=== PATIENT | female | born 1980 | race African-American/Black ===

== ENCOUNTER 2017-12-31 17:38 | Emergency (ER) | payer MEDICAID ==
[~2017-12-31] VITALS: Ht 167.6 cm; Wt 87.0 kg
[2017-12-31 17:43] VITALS: BP 119/76
== END 2017-12-31 20:46 | disposition left against medical advice (07) ==
LOC: ER 19:05
DX: R06.02 Shortness of breath (principal); R14.0 Abdominal distension (gaseous); R18.8 Other ascites; F12.10 Cannabis abuse, uncomplicated; F17.200 Nicotine dependence, unspecified, uncomplicated
CPT/HCPCS: 99281

== ENCOUNTER 2018-01-01 11:54 | Emergency (ER) | payer MEDICAID ==
[~2018-01-01] VITALS: Ht 167.6 cm; Wt 81.0 kg
[2018-01-01 13:06] LABS: CHLORIDE 103 mEq/L (98-107)
[2018-01-01 13:07] LABS: MEAN CORPUSCULAR HEMOGLOBIN 16.9 pg (28.0-32.0); MEAN CORPUSCULAR VOLUME 58.7 fL (81.0-99.0); MEAN PLATELET VOLUME 6.9 fl (7.4-10.4); PLATELET 670 x1000/uL (130-400); RED BLOOD CELL COUNT 3.99 mill/uL (4.2-5.4)
[2018-01-01 13:08] LABS: HEMOGLOBIN. 6.7 g/dL (12.0-16.0); INR 1.1; PROTHROMBIN TIME 11.3 sec (9.1-11.1)
[2018-01-01 13:09] LABS: HEMATOCRIT. 23.4 % (36.0-48.0)
[2018-01-01 13:43] LABS: PLATELET ESTIMATE MARKEDLY INCREASED
[2018-01-01 14:24] LABS: HCG SCREEN NEGATIVE
[2018-01-01 14:30] LABS: T4 FREE 0.99 ng/dL (0.76-1.46)
[2018-01-01 17:47] VITALS: BP 133/69
== END 2018-01-01 18:16 | disposition left against medical advice (07) ==
LOC: ER 12:58
DX: C56.9 Malignant neoplasm of unspecified ovary (principal); R18.8 Other ascites; Z72.0 Tobacco use; F12.90 Cannabis use, unspecified, uncomplicated
CPT/HCPCS: 36415; 74176; 80053; 83690; 84439; 84443; 84703; 85025; 85610; 86850; 86900; 99285